=== PATIENT | male | born 1985 | race African-American/Black ===

== ENCOUNTER 2016-10-04 11:37 | Emergency (ER) | payer MEDICAID ==
[~2016-10-04] VITALS: Ht 175.3 cm; Wt 70.3 kg
[~2016-10-04 11:37] MED LIST: AZITHROMYCIN250 MG ORAL; IBUPROFEN600 MG ORAL
[2016-10-04] MEDS ORDERED: NKM (12:09)
[2016-10-04] MEDS ORDERED: Lidocaine 1% MPF 10mg/ml 5ml INJ ONE (13:00)
[2016-10-04] MEDS ORDERED: IBUPROFEN600 MG ORAL (14:33)
--- NOTE | 2016-10-04 14:43 | Diagnostic Imaging Report ---
Indications: Heavy object fell on right foot, pain Technique: 3 views right foot Findings: Comparison: None There is a transverse fracture through the neck of the fifth proximal phalanx. Distal fragment demonstrates near complete bone width lateral displacement. There is a nondisplaced fracture through the waist or of the fifth middle phalanx, possibly comminuted. There is oblique fracture through the base of the fifth distal phalanx, possibly comminuted, slightly displaced, extending to the proximal articular surface. Surrounding soft tissues are swollen. No dislocation, soft tissue gas or foreign body, or other acute changes are identified. IMPRESSION: Fractures of all 3 phalanges of the right fifth toe as described, apparently closed
--- NOTE | 2016-10-04 14:47 | Diagnostic Imaging Report ---
Indications: Status post closed reduction attempt of displaced fracture of the right fifth proximal phalanx Technique: 3 views right foot at 1358 Findings: Comparison: 1238 Displacement of fracture of the fifth proximal phalanx is unchanged. Fractures of all 3/5 phalanges again noted. IMPRESSION: Unsuccessful closed reduction attempt of displaced fracture right fifth proximal phalanx
[2016-10-04 14:57] VITALS: BP 124/72
--- NOTE | 2016-10-05 11:55 | Emergency Room Report ---
History of Present Illness General Chief Complaint: Lower Extremity Injury Source: Patient Present Illness HPI The patient is a 31 yo M presenting for R foot pain after he states a heavy wooden cabinet fell on the toes today. He states pain is a 10/10 dull ache and does not radiate. Worse with touch. He denies numbness/tingling. He denies other symptoms including N, V, F, chills Allergies: Coded Allergies: No Known Allergies (Unverified , 08/21/15) Patient History Past Medical History: see triage record Pertinent Family History: none Reviewed Nursing Documentation: PMH: Agreed, PSxH: Agreed Nursing Documentation-PMH Past Medical History: No Stated History Review of Systems All Other Systems: negative except mentioned in HPI Physical Exam Vital Signs Date Time Temp Pulse Resp B/P (MAP) Pulse Ox O2 Delivery O2 Flow Rate FiO2 10/04/16 12:04 97.9 60 16 118/62 98 Room Air Sp02 EP Interpretation: reviewed, normal General Appearance: no apparent distress, alert, GCS 15, non-toxic Head: normocephalic, atraumatic Eyes: bilateral eye normal inspection, bilateral eye PERRL Musculoskeletal: decreased range of motion - R 5th toe, swelling - R 5th toe, tender - TTP over the R 5th toe Neurologic: alert, oriented x3, responsive, motor strength/tone normal, sensory intact, speech normal Psychiatric: judgement/insight normal, memory normal, mood/affect normal, no suicidal/homicidal ideation Skin: other - ecchymosis of the R 5th toe Procedures Splinting Splinting #1: Consent: Verbal Location: R 5th toe Pre-Made Type: bipin tape Pre-Proc Neuro Vasc Exam: normal Post-Proc Neuro Vasc Exam: normal Patient Tolerated: Well Complications: None Splinting #2: Consent: Verbal Location: R foot Pre-Made Type: cast shoe Pre-Proc Neuro Vasc Exam: normal Post-Proc Neuro Vasc Exam: normal Patient Tolerated: Well Complications: None Joint Reduction Joint Reduction : Consent: Verbal Joint Reduction Site: other - R 5th toe fracture Procedural Sedation: No Reduction Attempts: Other - 2 Pre-Procedure NV Exam: Yes Post-Procedure NV Exam: Yes Post Joint Reduction Film: fracture not reduced Patient Tolerated: Well Complications: None Medical Decision Making PA Attestation Dr. Werner is my supervising physician. Patient management was discussed with my supervising physician Diagnostic Impression: Primary Impression: Toe fracture, right Qualified Codes: S92.501A - Displaced unspecified fracture of right lesser toe (s), initial encounter for closed fracture ER Course The patient is a 31 yo M presenting for R foot pain DDx considered but not limited to: fracture, dislocation, sprain, contusion, among others PE: R 5th toe has swelling, ecchymosis, limited AROM. TTP. SILT. Xray reveals fracture of the 3 phalanges of 5th toe with some displacement digital block was performed for the 5th digit and reduction was attempted. Post reduction films show unsuccessful attempt. Another attempt was made again with my supervising physician but no addition films were obtained. Bipin tape and case shoe placed. He will FU with orthopedics. ER precautions given. Other X-Ray Diagnostic Results Other X-Ray Diagnostic Results #1: X-Ray ordered: R foot # of Views/Limited Vs Complete: 3 View Indication: Pain EP Interpretation: Yes Interpretation: other - R 5th toe fracture of all 3 phalanges Impression: Other - fractures of 5th toe Interpreting ER Provider: MD JOEL Montoya Scribe Text I'm acting as scribe for my supervising physician. My supervising physician's interpretation of the R foot xrays are there are multiple fracture of 5th digit Other X-Ray Diagnostic Results #2: X-Ray ordered: R foot post reduction # of Views/Limited Vs Complete: 3 View Indication: Pain EP Interpretation: Yes Interpretation: other - No reduction of fractures Impression: Other - fractures, not reduced Interpreting ER Provider: MD JOEL Montoya Scribe Text I'm acting as scribe for my supervising physician. My supervising physician's interpretation of the R foot xrays are the fractures are still evident. No reduction. Last Vital Signs Date Time Temp Pulse Resp B/P (MAP) Pulse Ox O2 Delivery O2 Flow Rate FiO2 10/04/16 14:57 97.9 66 18 124/72 99 Room Air Status: improved Disposition: HOME, SELF-CARE Condition: Stable Scripts Ibuprofen* (MOTRIN*) 600 Mg Tablet 600 MG ORAL Q8H Y for For Pain, #30 TAB 0 Refills Prov: SEBAS GARVIN 10/04/16 Patient Instructions: Toe Fracture Additional Instructions: I discussed my findings with the patient. All questions and concerns have been answered. Treatment and medication compliance have been addressed. I advised the patient that they need to follow up with primary doctor within the next 2 days. You need to obtain referral to see orthopedic doctor. Return to ED if pain remains or worsens, numbness or tingling occurs, new rash is noticed, fever is noticed, or if needed for any reason. Patient verbalized understanding of discharge instructions. SEBAS GARVIN Oct 05, 2016 11:55
== END 2016-10-04 14:59 | disposition home or self-care (01) ==
LOC: EMR 12:25
DX: S92.511A Displaced fracture of proximal phalanx of right lesser toe(s), initial encounter for closed fracture (principal); W20.8XXA Other cause of strike by thrown, projected or falling object, initial encounter; Y92.89 Other specified places as the place of occurrence of the external cause
CPT/HCPCS: 28515; 73630; 99284; Z7502; 64450

== ENCOUNTER 2017-09-18 13:14 | Emergency (ER) | payer MEDICAID ==
[~2017-09-18] VITALS: Ht 172.7 cm; Wt 70.3 kg
[~2017-09-18 13:14] MED LIST changes: +NKM
[2017-09-18 13:30] VITALS: BP 125/78
[2017-09-18] MEDS ORDERED: CEPHALEXIN500 MG ORAL (14:11)
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
[2017-09-18 14:28] VITALS: BP 121/82
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
== END 2017-09-18 14:28 | disposition home or self-care (01) ==
LOC: EMR 13:39
DX: S21.112A Laceration without foreign body of left front wall of thorax without penetration into thoracic cavity, initial encounter (principal); X99.1XXA Assault by knife, initial encounter; Y93.9 Activity, unspecified; Y92.9 Unspecified place or not applicable
CPT/HCPCS: 71250; 99284

== ENCOUNTER 2019-04-06 23:41 | Emergency (ER) | payer MEDICAID ==
[~2019-04-06] VITALS: Ht 175.3 cm; Wt 65.8 kg
[~2019-04-06 23:41] MED LIST changes: +CEPHALEXIN500 MG ORAL
[2019-04-06 23:50] VITALS: BP 111/61
--- NOTE | 2019-04-06 23:55 | NUR ---
ED Nurse Note: Patient presents to ED from home c/o productive cough x 2 weeks. Patient has been taking amoxicillin that was not prescribed to him.
[2019-04-07] MEDS ORDERED: ZITHROMAX250 MG ORAL (00:10)
--- NOTE | 2019-04-07 00:11 | Emergency Room Report ---
History of Present Illness General Chief Complaint: Upper Respiratory Illness Source: Patient Present Illness HPI This a 33-year-old male with no past medical history. He presents with complaint of a cough. Onset for last 2 weeks. Initially with fever chills but better now. Still productive of greenish sputum. Worse with inspiration. No nausea no vomiting. No abdominal pain. Again ongoing for 2 weeks. Allergies: Coded Allergies: No Known Allergies (Unverified , 09/18/17) Patient History Past Medical History: see triage record, old chart reviewed Past Surgical History: none Pertinent Family History: none Social History: Denies: smoking Immunizations: other Reviewed Nursing Documentation: PMH: Agreed; PSxH: Agreed Nursing Documentation-PMH Past Medical History: No Stated History Review of Systems Eye: Denies: eye pain, blurred vision ENT: Denies: ear pain, nose congestion, throat swelling Respiratory: Reports: cough, sputum; Denies: shortness of breath Cardiovascular: Denies: chest pain, palpitations Gastrointestinal: Denies: abdominal pain, diarrhea, nausea, vomiting Musculoskeletal: Denies: back pain, joint pain Skin: Denies: rash Neurological: Denies: headache, numbness Endocrine: Denies: increased thirst, increased urine Hematologic/Lymphatic: Denies: easy bruising All Other Systems: negative except mentioned in HPI Physical Exam Vital Signs Date Time Temp Pulse Resp B/P (MAP) Pulse Ox O2 Delivery O2 Flow Rate FiO2 04/06/19 23:45 98.1 66 19 111/61 (78) 98 Room Air Vitals normal Sp02 EP Interpretation: reviewed, normal General Appearance: well appearing, no apparent distress, alert Head: normocephalic, atraumatic Eyes: bilateral eye PERRL, bilateral eye EOMI ENT: hearing grossly normal, normal pharynx Neck: full range of motion, supple, no meningismus Respiratory: chest non-tender, lungs clear, normal breath sounds Cardiovascular #1: regular rate, rhythm, no murmur Gastrointestinal: normal bowel sounds, non tender, no mass, no organomegaly, no bruit, non-distended Musculoskeletal: back normal, normal range of motion, gait/station normal Psychiatric: mood/affect normal Medical Decision Making Diagnostic Impression: Primary Impression: Upper respiratory infection Qualified Codes: J06.9 - Acute upper respiratory infection, unspecified Additional Impression: Pneumonitis ER Course Patient presents with a cough is been going for 2 weeks. Most likely viral but because of duration, will put on antibiotics to cover for atypical pneumonia. No evidence of ACS, PE, dissection to my view. Will discharge home. Last Vital Signs Date Time Temp Pulse Resp B/P (MAP) Pulse Ox O2 Delivery O2 Flow Rate FiO2 04/06/19 23:45 98.1 66 19 111/61 (78) 98 Room Air Status: improved Disposition: HOME, SELF-CARE Condition: Stable Scripts Azithromycin* (ZITHROMAX*) 250 Mg Tablet 250 MG ORAL DAILY, #6 TAB 0 Refills Take two tables once daily for 1 day, then one tablet once daily for 4 days. Prov: Ernie Fountain MD 04/07/19 Patient Instructions: Upper Respiratory Infection, Adult Additional Instructions: Follow-up with your doctor in 7 days. Return if symptoms worsen. Ernie Fountain MD Apr 07, 2019 00:11
[2019-04-07 00:53] VITALS: BP 111/61
--- NOTE | 2019-04-07 00:59 | NUR ---
ED Nurse Note: Pt cleared by health care Provider for discharge. DC instructions/prescription was given and explained to pt and verbalized understanding of teachings. All medical deviecs such as ID band removed. Pt is AAO x4, ambulatory and left with all personal belongings.
== END 2019-04-07 00:59 | disposition home or self-care (01) ==
LOC: EMR 23:59
DX: J06.9 Acute upper respiratory infection, unspecified (principal); J18.9 Pneumonia, unspecified organism
CPT/HCPCS: 99282

== ENCOUNTER 2019-07-22 11:42 | Emergency (ER) | payer MEDICAID ==
[~2019-07-22] VITALS: Ht 175.3 cm; Wt 70.3 kg
[~2019-07-22 11:42] MED LIST changes: +ZITHROMAX250 MG ORAL
--- NOTE | 2019-07-22 11:48 | NUR ---
called patient, not in the waiting room
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
[2019-07-22 12:57] VITALS: BP 98/70
--- NOTE | 2019-07-22 13:26 | Diagnostic Imaging Report ---
Indications: Head trauma, laceration on back of head Technique: Spiral acquisitions obtained through the brain. Angled axial and coronal 5 x 5 mm slices were reconstructed. Total dose length product 1072 mGycm. CTDI vol(s) 53 mGy. Dose reduction achieved using automated exposure control Comparison: None. Findings: No acute intracranial hemorrhage or edema. No mass effect nor midline shift. Normal zarate-white differentiation. Normal sized ventricles and extra axial CSF spaces. There is minimal occipital region scalp soft tissue swelling. The calvarium is intact. Impression: Evidence of scalp soft tissue injury Negative for acute intracranial bleed or mass effect The CT scanner at [facility] is accredited by the [employer] and the scans are performed using protocols designed to limit radiation exposure to as low as reasonably achievable to attain images of sufficient resolution adequate for diagnostic evaluation.
--- NOTE | 2019-07-22 13:34 | Emergency Room Report ---
History of Present Illness General Chief Complaint: Laceration Source: Patient Present Illness HPI 33-year-old male with no signal past medical history here complaining of a laceration to the occipital lobe. Patient reports that he landed on his posterior head, denies any loss of consciousness, headache and dizziness at this time. Denies any nausea vomiting, blurry vision. Reports that it happened this morning. 2 cm laceration noted occipital region minimal bleeding. Denies being on blood thinners. Also reports that he is a scratch in the left palm and has range of motion. Denies any pain at that site. Is up- to-date with tetanus shot. Has not taken medication for symptom relief. Denies all other injury. Allergies: Coded Allergies: No Known Allergies (Unverified , 09/18/17) COVID-19 Screening Contact w/high risk pt: No Recent Travel to affected area: No Experienced COVID-19 symptoms?: No COVID-19 Testing performed [employer]: No Patient History Past Medical History: see triage record Past Surgical History: none Pertinent Family History: none Immunizations: UTD Reviewed Nursing Documentation: PMH: Agreed; PSxH: Agreed Nursing Documentation-PMH Past Medical History: No Stated History Review of Systems All Other Systems: negative except mentioned in HPI Physical Exam Vital Signs Date Time Temp Pulse Resp B/P (MAP) Pulse Ox O2 Delivery O2 Flow Rate FiO2 07/22/19 12:06 98.8 70 17 98/70 (79) 99 Room Air Sp02 EP Interpretation: reviewed, normal General Appearance: no apparent distress, alert, GCS 15, non-toxic Head: other - 2 cm laceration to occipital lobe Eyes: bilateral eye normal inspection, bilateral eye PERRL ENT: hearing grossly normal, normal pharynx, no angioedema, normal voice Neck: full range of motion, supple/symm/no masses Respiratory: chest non-tender, lungs clear, normal breath sounds, speaking full sentences Cardiovascular #1: regular rate, rhythm, no edema Cardiovascular #2: 2+ radial (R), 2+ radial (L) Gastrointestinal: normal bowel sounds, non tender, soft, non-distended, no guarding, no rebound Rectal: deferred Genitourinary: no CVA tenderness Musculoskeletal: back normal Neurologic: alert, motor strength/tone normal, oriented x3, sensory intact, responsive, speech normal Psychiatric: judgement/insight normal, memory normal, mood/affect normal, no suicidal/homicidal ideation Skin: no rash, laceration - 1 cm open laceration occipital lobe, very superficial small laceration left home Lymphatic: no adenopathy Procedures Laceration/Wound Repair Laceration/Wound Repair #1: Consent: Verbal Wound Location: head Wound's Depth, Shape: superficial Wound Length (cm): 2 Wound Explored: clean Betadine Prep?: Yes Wound Repaired With: ida Number of Sutures: 7 Layer Closure?: Yes Sterile Dressing Applied?: Yes Splint Applied?: No Sling Applied?: No Patient Tolerated: Well Complications: None Laceration/Wound Repair #2: Consent: Verbal Wound Location: upper extremity - Left palm Wound's Depth, Shape: superficial Wound Length (cm): 0 Wound Explored: clean Betadine Prep?: Yes Wound Repaired With: Dermabond Layer Closure?: Yes Sterile Dressing Applied?: Yes Splint Applied?: No Sling Applied?: No Patient Tolerated: Well Complications: None Medical Decision Making Diagnostic Impression: Primary Impression: Scalp laceration Additional Impressions: Head contusion Laceration of palm ER Course 33-year-old male with no signal past medical history here complaining of a laceration to the occipital lobe. Patient reports that he landed on his posterior head, denies any loss of consciousness, headache and dizziness at this time. Denies any nausea vomiting, blurry vision. Reports that it happened this morning. 2 cm laceration noted occipital region minimal bleeding. Denies being on blood thinners. Also reports that he is a scratch in the left palm and has range of motion. Denies any pain at that site. Is up- to-date with tetanus shot. Has not taken medication for symptom relief. Denies all other injury. Ddx considered but are not limited to: cerebral hematoma, concussion, skull fracture, head contusion, superficial laceration, deep laceration, Vital signs: are WNL, pt. is afebrile H&PE are most consistent with: Head contusion, scalp laceration, laceration of palm ORDERS: head CT no contrast, Augmentin, Motrin ED INTERVENTIONS: Wound closure and repair DISCHARGE: At this time pt. is stable for d/c to home. Will provide printed patient care instructions, and any necessary prescriptions. Care plan and follow up instructions have been discussed with the patient prior to discharge. Sutures to be removed in 7 to 10 days, take medication as directed, if worsening symptoms return to the emergency room. CT/MRI/US Diagnostic Results CT/MRI/US Diagnostic Results : Imaging Test Ordered: CT head no contrast Impression No intracranial bleed, no skull fracture Last Vital Signs Date Time Temp Pulse Resp B/P (MAP) Pulse Ox O2 Delivery O2 Flow Rate FiO2 07/22/19 12:57 98.8 17 98/70 99 Room Air 07/22/19 12:06 70 Disposition: HOME, SELF-CARE Condition: Stable Scripts Ibuprofen* (MOTRIN*) 600 Mg Tablet 600 MG ORAL THREE TIMES A DAY, #30 TAB Prov: Deidra Mitchell 07/22/19 Amoxicillin/Potassium Clav 875-125* (AUGMENTIN 875-125 TABLET*) 1 Each Tablet 1 TAB ORAL TWICE A DAY for 7 Days, #14 TAB Prov: Deidra Mitchell 07/22/19 Referrals: [facility],REFERRING (PCP) Patient Instructions: Facial or Scalp Contusion, [id number], Laceration Care , Adult Additional Instructions: Take medication as directed, follow with primary doctor, ida to be removed in 7 to 10 days, if worsening symptoms return to the emergency room. Deidra Mitchell Jul 22, 2019 13:34
[2019-07-22] MEDS ORDERED: IBUPROFEN600 M1 ORAL (13:35)
[2019-07-22] MEDS ORDERED: AUGMENTIN 875-1 EAC1 ORAL (13:35)
[2019-07-22 13:39] VITALS: BP 98/70
== END 2019-07-22 13:41 | disposition home or self-care (01) ==
LOC: EMR 12:51
DX: S01.01XA Laceration without foreign body of scalp, initial encounter (principal); S61.412A Laceration without foreign body of left hand, initial encounter; S00.93XA Contusion of unspecified part of head, initial encounter; X58.XXXA Exposure to other specified factors, initial encounter; Y92.9 Unspecified place or not applicable
CPT/HCPCS: 12001; 70450; Z7502; 99284

== ENCOUNTER 2019-08-04 21:44 | Emergency (ER) | payer MEDICAID ==
[~2019-08-04] VITALS: Ht 175.3 cm; Wt 68.0 kg
[~2019-08-04 21:44] MED LIST changes: +AUGMENTIN 875-1 EAC1 ORAL; +IBUPROFEN600 M1 ORAL
[2019-08-04 22:10] VITALS: BP 105/60
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
--- NOTE | 2019-08-04 22:15 | NUR ---
ED Nurse Note: ERMD at bedside
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
[2019-08-04 22:22] VITALS: BP 110/65
--- NOTE | 2019-08-04 22:22 | NUR ---
ER DISCHARGE NOTE: Patient is cleared to be discharged per ERMD, pt is aox4, on room air, with stable vital signs. pt was given dc and prescription instructions, pt was able to verbalize understanding, pt id band removed without complications. pt is able to ambulate with steady gait. pt took all belongings.
== END 2019-08-04 22:22 | disposition home or self-care (01) ==
LOC: EMR 22:13
DX: Z48.02 Encounter for removal of sutures (principal)
CPT/HCPCS: 99281

== ENCOUNTER 2020-02-05 23:54 | Emergency (ER) | payer MEDICAID ==
[~2020-02-05] VITALS: Ht 172.7 cm; Wt 68.0 kg
[2020-02-06] VITALS: BP 117/78
--- NOTE | 2020-02-06 | NUR ---
ED Nurse Note: ambulated to ed c/o ingrown hair on right lower face x 3 days. reports pain and abcess forming. patient ao4 with no acute distress. vitals stable. all safety measures met.
[2020-02-06] MEDS ORDERED: Lidocaine 1% Plain 30 ml INJ ONE ×2 (00:17→00:30)
[2020-02-06] MEDS ORDERED: AUGMENTIN 875-1 EAC1 ORAL (00:37)
[2020-02-06] MEDS ORDERED: ACETAMINOPHEN-1 EAC1 ORAL (00:37)
[2020-02-06 00:45] VITALS: BP 117/78
[2020-02-06] MEDS ORDERED: Augmentin 875mg Tab ORAL ONE (00:45)
[2020-02-06] MEDS ORDERED: Tylenol #3 tab (300mg/30mg) ORAL ONE (00:45)
--- NOTE | 2020-02-06 00:45 | NUR ---
ER DISCHARGE NOTE: Patient is cleared to be discharged per ERMD, pt is aox4, on room air, with stable vital signs. pt was given dc and prescription instructions, pt was able to verbalize understanding, pt id band removed. pt is able to ambulate with steady gait. pt took all belongings.
--- NOTE | 2020-02-06 01:35 | Emergency Room Report ---
History of Present Illness General Chief Complaint: Skin Rash/Abscess Source: Patient Present Illness HPI 34-year-old male presents with pain and swelling to his right jaw. States he had a ingrown hair for the last 3 days. Getting increasingly more swollen and painful. States he noticed some discharge. Pain is throbbing, 10 out of 10, nonradiating. Denies fevers or chills. Denies neck stiffness. No other aggravating relieving factors. 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: No Patient History Past Medical History: none Past Surgical History: none Pertinent Family History: none Social History: Denies: smoking, alcohol use, drug use Immunizations: UTD Reviewed Nursing Documentation: PMH: Agreed; PSxH: Agreed Nursing Documentation-PMH Past Medical History: No Stated History Review of Systems All Other Systems: negative except mentioned in HPI Physical Exam Vital Signs Date Time Temp Pulse Resp B/P (MAP) Pulse Ox O2 Delivery O2 Flow Rate FiO2 02/05/20 23:57 98.6 85 16 117/78 (91) 96 02/06/20 00:45 Room Air Sp02 EP Interpretation: reviewed, normal General Appearance: no apparent distress, alert, GCS 15, non-toxic Head: normocephalic, atraumatic Eyes: bilateral eye normal inspection, bilateral eye PERRL ENT: hearing grossly normal, normal pharynx, no angioedema, normal voice Neck: full range of motion, supple/symm/no masses Respiratory: chest non-tender, lungs clear, normal breath sounds, speaking full sentences Cardiovascular #1: regular rate, rhythm, no edema Cardiovascular #2: 2+ carotid (R), 2+ carotid (L), 2+ radial (R), 2+ radial (L), 2+ dorsalis pedis (R), 2+ dorsalis pedis (L) Gastrointestinal: normal bowel sounds, non tender, soft, non-distended, no guarding, no rebound Rectal: deferred Genitourinary: normal inspection, no CVA tenderness Musculoskeletal: back normal, normal range of motion, gait/station normal, non- tender Neurologic: alert, motor strength/tone normal, oriented x3, sensory intact, responsive, speech normal Psychiatric: judgement/insight normal, memory normal, mood/affect normal, no suicidal/homicidal ideation Reflexes: 3+ bicep (R), 3+ bicep (L), 3+ tricep (R), 3+ tricep (L), 3+ knee (R), 3+ knee (L) Skin: other - 3 x 3 cm abscess to right jaw at the angle. Discharge and fluctuance noted Lymphatic: no adenopathy Procedures Incision and Drainage Incision and Drainage : Consent: Verbal Blade Size: 11 I & D Procedure: betadine prep, sterile drapes applied, sterile dressing applied, gauze wick placed Wound Location: face - Right jaw Wound's Depth, Shape: other - Abscess Wound Explored: Purulent discharge Anesthesia: 1% Lidocaine Splint Applied?: No Sling Applied?: No Patient Tolerated: Well Complications: None Medical Decision Making Diagnostic Impression: Primary Impression: Abscess ER Course Hospital Course 34-year-old male presents with swelling and pain to the right jaw Clinical course Patient placed on stretcher. After initial history and physical I anesthetized with lidocaine. Betadine prep. Using scalpel I incised the abscess and using forceps I broke up any loculations. Significant purulent discharge expressed. Patient tolerated procedure without complication. Dressings applied Given pain meds, Augmentin in ED. Safe for discharge with close outpatient follow-up. States he has a PMD Diagnosis - abscess Stable and discharged to home with prescription for Tylenol #3, Augmentin. wound Care instructions given. Followup with PMD. Return to ED if any signs of infection develop Last Vital Signs Date Time Temp Pulse Resp B/P (MAP) Pulse Ox O2 Delivery O2 Flow Rate FiO2 02/06/20 00:45 98.6 87 16 117/78 96 Room Air Status: improved Disposition: HOME, SELF-CARE Condition: Stable Scripts Acetaminophen With Codeine (T#3) (TYLENOL #3 TAB*) Y Tab 1 TAB ORAL Q8H PRN for For Pain, #20 TAB Prov: Huber Werner MD 02/06/20 Amoxicillin/Potassium Clav 875-125* (AUGMENTIN 875-125 TABLET*) 1 Each Tablet 1 TAB ORAL TWICE A DAY, #14 TAB Prov: Huber Werner MD 02/06/20 Referrals: [facility] Patient Instructions: Huber Carvalho MD Feb 06, 2020 01:34
== END 2020-02-06 00:45 | disposition home or self-care (01) ==
LOC: EMR 02-06 00:08
DX: M27.2 Inflammatory conditions of jaws (principal)
CPT/HCPCS: 10060; J2001; Z7502; 99282